=== PATIENT | female | born 1955 | race Caucasian/White ===

== ENCOUNTER 2017-02-28 10:15 | Emergency (ER) | payer OTHER ==
[~2017-02-28] VITALS: Ht 160 cm; Wt 68.0 kg
[~2017-02-28 10:15] MED LIST: KEFLEX500 MG PO
[2017-02-28 10:26] VITALS: BP 136/87
--- NOTE | 2017-02-28 11:21 | ED UPPER/LOWER EXTREMITY COMPL ---
History of Present Illness General Chief Complaint: Lower Extremity Problems Stated Complaint: BILATERAL LEG SWELLING AFTER FLIGHT Source: patient Exam Limitations: no limitations Vital Signs & Intake/Output Vital Signs & Intake/Output Vital Signs Date Time Temp Pulse Resp B/P B/P Pulse O2 O2 Flow FiO2 Mean Ox Delivery Rate 02/28 1026 98.1 74 20 136/87 97 Room Air Allergies Coded Allergies: Sulfa (Sulfonamide Antibiotics) (SWELLING 02/28/17) Reconcile Medications Atenolol 25 MG TABLET 1 TAB PO DAILY HEART (Reported) Atorvastatin Calcium 40 MG TABLET 1 TAB PO DAILY CHOLESTEROL (Reported) Methylprednisolone. (Medrol) 4 MG TAB.DS.PK 1 DP PO AD INFLAMMATION 6 on day 1 then reduce by one tablet daily until gone Omeprazole 40 MG CAPSULE.DR 1 CAP PO DAILY GI (Reported) Triage Note: PER PT TOOK A FLIGHT FROM [place] TO [place], 13 DAYS AGO PER PT LEGS SWOLLEN, NUMB AND STRANGE SENSATION, Triage Nurses Notes Reviewed? yes Onset: Gradual Timing: recent history Severity: moderate Severity Numbers: 5 No Modifying Factors: none HPI: Patient is a 61-year-old female who presents emergency neck 13 days ago she was returning from a long airline flight where she noticed a gradual onset of bilateral leg paresthesia and decreased sensation and leg swelling. Patient does state that the leg swelling has improved however patient's paresthesia still continues. Patient denies any shortness of breath fever chills cough hemoptysis chest pain or claudication. Past History Travel History Traveled to [place] past 21 day No Medical History Any Pertinent Medical History? 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 No Review of Systems Review of Systems Constitutional: Reports: no symptoms. EENTM: Reports: no symptoms. Respiratory: Reports: see HPI. Denies: cough, hemoptysis, short of breath. Cardiovascular: Reports: see HPI, peripheral edema. Denies: chest pain. Gastrointestinal/Abdominal: Reports: no symptoms. Genitourinary: Reports: no symptoms. Musculoskeletal: Reports: no symptoms. Skin: Reports: no symptoms. Neurological/Psychological: Reports: see HPI, paresthesia. Hematologic/Endocrine: Reports: no symptoms. Immunological: Reports: no symptoms. All Other Systems: Reviewed and Negative Physical Exam Physical Exam General Appearance: no apparent distress, alert, comfortable Neurologic/Tendon: normal sensation, normal motor functions, normal tendon functions, responds to pain, no evidence tendon injury, no pulse deficit Comments: Well-developed well-nourished person in no acute distress HEENT: Normal EENT exam, Neck: Supple, no lymphadenopathy, normal range of motion without pain or tenderness Back: Nontender, no CVA tenderness. Full range of motion Cardiovascular: Regular rate and rhythms no murmurs rubs or gallops, normal JVP Respiratory: Chest nontender. No respiratory distress.breath sounds clear to auscultation bilaterally Abdomen: Soft, nontender nondistended, no appreciable organomegaly. Normal bowel sounds. No ascites Extremity: Bilateral above the ankle below the knee trace pitting edema no pedal edema, no calf tenderness to palpation, normal and equal pulses Bilateral lower extremity myotomes dermatomes DTRs intact. Neuro: Alert oriented x3, motor sensory normal, Skin: No appreciable rash on exposed skin, skin is warm and dry. Psych: Mood and affect is normal, memory and judgment is normal. Progress Differential Diagnosis: arterial insufficiency, compartment syndrome, contusion, dislocation, DVT, fracture, gout, septic arthritis, sprain, tendon injury Plan of Care: Orders Procedure Date/time Status US-EXT BILAT VENOUS DOPPLER 02/28 103 Active Ultrasound was unremarkable for concerns of DVT. Patient denies any low back pain Patient's bilateral lower extremity was neurovascularly intact. Patient will be treated for concerns of paresthesia and leg edema and was strongly advised to follow up with primary care doctor patient had normal study gait on discharge (NGA AHILE,NOHEMY) Diagnostic Imaging: Viewed by Me: Ultrasound. Radiology Impression: no acute abnormality Comments: PATIENT: CHUY GOMEZ PRESENT AGE: 61 PATIENT ACCOUNT NO: [id number] : 56 LOCATION: [facility] ORDERING PHYSICIAN: NOHEMY HAILE SERVICE DATE: 02/28/17-1032 EXAM TYPE: US - US-EXT BILAT VENOUS DOPPLER EXAMINATION: US TRIPLEX OF LOWER EXTREMITIES, BILATERAL CLINICAL INFORMATION: Bilateral lower extremity swelling status post flight from [place] COMPARISON: None TECHNIQUE: Color-flow triplex imaging with spectral analysis and compression Doppler were performed on the lower extremities. FINDINGS: Respiratory variation, normal compression and augmented flow are noted throughout the lower extremities. The visualized common femoral vein, superficial femoral vein, profunda femoral vein, popliteal vein and midcalf peroneal and posterior tibial venous segments show no evidence of deep venous thrombosis. There is no Ashford's cyst. IMPRESSION: Normal triplex scan without evidence of deep venous thrombosis involving the lower extremities. DICTATED BY: VIKRAM LAL MD DATE/TIME DICTATED:02/28/171120 Departure Departure Disposition: HOME OR SELF CARE Condition: Stable Clinical Impression Primary Impression: Leg edema Secondary Impressions: Bilateral leg paresthesia Referrals: YOBANY OSMAN,OZZY Wright (PCP/Family) Additional Instructions: As discussed begin elevating YOUR feet for swelling improvement. Begin the prescription of Medrol Dosepak for inflammation and your symptoms. If no better in 5 days follow-up with your primary care doctor. If symptoms worsen return to emergency room. Prescription is waiting at [facility] pharmacy Departure Forms: Customer Survey General Discharge Information Prescriptions: Current Visit Scripts Methylprednisolone. (Medrol) 1 DP PO AD #1 DP 6 on day 1 then reduce by one tablet daily until gone
--- NOTE | 2017-02-28 11:24 | ULTRASOUND REPORT ---
EXAMINATION: US TRIPLEX OF LOWER EXTREMITIES, BILATERAL CLINICAL INFORMATION: Bilateral lower extremity swelling status post flight from [place] COMPARISON: None TECHNIQUE: Color-flow triplex imaging with spectral analysis and compression Doppler were performed on the lower extremities. FINDINGS: Respiratory variation, normal compression and augmented flow are noted throughout the lower extremities. The visualized common femoral vein, superficial femoral vein, profunda femoral vein, popliteal vein and midcalf peroneal and posterior tibial venous segments show no evidence of deep venous thrombosis. There is no Ashford's cyst. IMPRESSION: Normal triplex scan without evidence of deep venous thrombosis involving the lower extremities.
[2017-02-28] MEDS ORDERED: ATENOLOL25 M1 PO (11:38)
[2017-02-28] MEDS ORDERED: OMEPRAZOLE40 M1 PO (11:38)
[2017-02-28] MEDS ORDERED: ATORVASTATIN CA40 M1 PO (11:38)
[2017-02-28] MEDS ORDERED: MEDROL4 M2 PO (11:49)
== END 2017-02-28 12:04 ==
LOC: ERH 10:15
DX: R60.0 Localized edema (principal); R20.2 Paresthesia of skin
CPT/HCPCS: 93970